=== PATIENT | male | born 1965 | race Caucasian/White ===

== ENCOUNTER 2016-07-13 10:50 | Day surgery (SDC) | payer OTHER ==
[~2016-07-13] VITALS: Ht 170.2 cm; Wt 74.8 kg
[~2016-07-13 10:50] MED LIST: 0.9% Sodium Chloride 1,000 ML IV PRN; AMIT10TA6 PO; ATEN50TA PO; DULO60CA42 PO; LISI-571 PO; RANI150T11 PO; Sodium Chloride LOK Flush 10 mL Syringe IV PRN; ZOLP10TA5 PO; fentaNYL-PF 50 mCg/mL 2 mL Inj IVPUSH PRN
[2016-07-13 11:24] VITALS: BP 112/72; PULSE 69; RESP 16; O2SAT 94
[2016-07-13] MEDS ORDERED: CANNIBUS (11:25)
[2016-07-13] MEDS ORDERED: 0.9% Sodium Chloride 1,000 ML IV ONE (12:34)
[2016-07-13 13:07] VITALS: BP 125/74; PULSE 63; RESP 16; O2SAT 97
--- NOTE | 2016-07-13 13:11 | PCM.ENDCOL ---
Colonoscopy Date of Service: July 13, 2016 Physician Anthony Theodore MD Pre Procedure Diagnosis: Blood per rectum Post Procedure Dx & Findings: Hemorrhoids Procedure Colonoscopy PROCEDURE IN DETAIL: Prep adequate Withdrawal time 13 minutes After unremarkable rectal examination the Olympus video colonoscope was inserted patient's anal canal and was advanced to cecum. Landmarks were identified including the ileocecal valve and appendiceal orifice. Scope further as the terminal ileum. Terminal ileum showed normal villous structures without any ulcer mass erosions. Scope was withdrawn systematically. Visualized colonic mucosa showed healthy shiny mucosa with normal healthy- appearing vasculature. In the rectum retroflexion was done which showed hemorrhoids. Anal canal was inspected carefully on the way out and hemorrhoids noted. Impression Hemorrhoids Recommendation Repeat colonoscopy in 10 years if there is no family or personal history of colon cancer polyp. If so, repeat in 5 years. Presedation Assessment Risks and Benefits Informed consent was obtained from the patient after all risks and benefits including but not limited to drug reaction, infection, pain, bleeding, perforation, as well as alternatives were discussed. Patient monitoring Continuous pulse oximetry, cardiac monitoring, blood pressure monitoring, IV access, and oxygen at 2L per nasal cannula. Periprocedural Fentanyl: Fentanyl 100mcg Incrementally Midazolam: Midazolam 6mg Incrementally Complications There were no periprocedural complications identified. Post Procedure Plan Post Procedure Recommendations 1. Restrict activities today. 2. Resume normal activities in the morning. 3. Resume medications. 4. Patient informed of normal post procedure side effects as bloating, drowsiness, blood streaking in the stool. 5. average risk CRCS. If colon polyps come back as: -Hyperplastic- can repeat colonoscopy in 10 years -Tubular adenoma- repeat colonoscopy in 5 years -Tubulovillous/villous adenoma- repeat colonoscopy in 3 years -If any dysplasia- return to clinic as soon as possible 6. Please don't hesitate to call me with any questions. Anthony Theodore MD July 13, 2016 13:10
[2016-07-13 13:17] VITALS: BP 109/66; PULSE 67; RESP 16; O2SAT 96
== END 2016-07-13 23:59 | disposition home or self-care (01) ==
LOC: END 10:50
PROVIDERS: ATTEND Internal Medicine
DX: K64.9 Unspecified hemorrhoids (principal); K92.1 Melena; I10 Essential (primary) hypertension; M54.9 Dorsalgia, unspecified
CPT/HCPCS: 45378; 99153; G0500; J7030